=== PATIENT | male | born 1940 | race Caucasian/White ===

== ENCOUNTER → 2018-08-03 09:53 | Outpatient (CLI) | payer OTHER, SELFPAY ==
--- NOTE | 2018-08-13 10:16 | PM.PFT.1 ---
Pulmonary Function Test Referral & Results Date Patient Seen: 08/03/18 Requesting provider: Dillon Paul Results: The spirometry demonstrates an FVC of 3.79 L which is 92% of predicted. The FEV1 was measured at 3.10 L which is 106% of predicted. The FEV1/FVC ratio was 82 which is 113% of predicted. Following the administration of bronchodilator there was no appreciable change. Lung volumes show an SVC of 3.62 L which is 81% of predicted. The diffusing capacity was measured at 28.43 which is 87% of predicted. The maximum voluntary ventilation was normal Interpretation: This study demonstrates probably normal pulmonary function, there may be slight reduction in SVC suggesting some element of restrictive lung disease based on patient's other normal numbers I will call this a normal study
== END ==
PROVIDERS: PCP Student in an Organized Health Care Education/Training Program; Visit Provider Student in an Organized Health Care Education/Training Program
DX: R05 Cough (principal); R91.8 Other nonspecific abnormal finding of lung field
CPT/HCPCS: 94010; 94060; 94726; 94729

== ENCOUNTER 2023-10-16 08:28 | Inpatient (IN) | payer MEDICARE, SELFPAY ==
[2023-10-16] VITALS (18 sets, daily range): BP systolic 115–159; BP diastolic 66–82; PULSE 71–105; RESP 15–38; TEMP 36.5; O2SAT 95–98; BMI 21.7
--- NOTE | 2023-10-16 08:44 | ED_ITS ---
HPI - General Adult General Chief complaint: Altered Mental Status Stated complaint: thinks UTI and dehydrated/ lethargic Time Seen by Provider: 10/16/23 08:35 Source: family Mode of arrival: Wheelchair Limitations: other (Dementia) History of Present Illness HPI narrative: Patient is an 83-year-old male. Has a history of dementia. According to his who is at bedside at baseline he does not know what year it is or what month it is. He is normally able to walk on his own. He is able to talk. He is spent the past several months at a care home facility because of the dementia. Patient is unable to provide any HPI. The patient's states that she thinks that over the past several days/week he is declined. She states that now he is very unsteady on his feet. He is not been eating or drinking very much. She was concerned that maybe he has a urinary tract infection or maybe even dehydrated as he acted very similar approximately 1 year ago when he became dehydrated. He is unable to state whether or not he is having any pain. Related Data Home Medications Medication Instructions Recorded Confirmed finasteride 5 mg tablet 5 mg PO DAILY 10/16/23 10/16/23 nitrofurantoin 1 cap PO BID 10/16/23 10/16/23 monohydrate/macrocrystals 100 mg capsule pantoprazole 20 mg tablet,delayed 20 mg PO DAILY 10/16/23 10/16/23 release quetiapine 25 mg tablet 25 mg PO DAILY 10/16/23 10/16/23 Allergies Allergy/AdvReac Type Severity Reaction Status Date / Time [id number]-[id number] Reductase Allergy Verified 10/16/23 08:45 Inhibitor Review of Systems Review of Systems Narrative: Unable to obtain given patient's history of dementia Exam Initial Vital Signs Initial Vital Signs: Vital Signs Temperature 97.7 F 10/16/23 08:40 Pulse Rate 105 H 10/16/23 08:40 Respiratory Rate 20 10/16/23 08:40 Blood Pressure 157/82 H 10/16/23 08:40 Pulse Oximetry 97 10/16/23 08:40 Oxygen Delivery Method Room Air 10/16/23 08:40 HENMT Face and sinus: normal facial exam Mouth: No moist mucous membranes Resp Effort & Inspection: normal respiratory effort Auscultation: clear to auscultation bilaterally Cardio Rate: regular rate Rhythm: regular rhythm GI Inspection: normal to inspection and distended Palpation: firm and guarding Skin General: no rashes or lesions noted Neuro Other: Patient is able to follow commands. Was able to say ?those are cold? when the EKG leads were placed on him. Would not answer questions otherwise. Extrem General: capillary refill normal Scores GCS [place] coma scale eye opening: Spontaneous [place] coma scale verbal response: Confused [place] coma scale motor response: Obey commands [place] coma scale total score: 14 Course Orders Ordered: ED Orders 10/16/23 08:55 Complete Blood Count AUTO DIFF Stat Comprehensive Metabolic Panel Stat Creatine Kinase Stat Lactate (Lactic Acid) Stat Lipase Stat Procalcitonin Stat 10/16/23 09:20 Creatinine Urine Random Stat Sodium Urine Random Stat Urinalysis and Microscopic Stat Urine Culture Stat 10/16/23 09:21 Blood Culture Stat 10/16/23 09:43 US renal complete Stat 10/16/23 09:57 Type and Screen Stat Sodium Chloride (Normal Saline 0.9%) 1,000 mls @ 125 mls/hr IV CONT MITRA Last Admin: 10/16/23 10:31 Dose: 125 mls/hr Documented By: MALINDA Discontinued Medications Sodium Chloride (Normal Saline 0.9%) 1,000 mls @ 500 mls/hr IV BOLUS ONE Stop: 10/16/23 10:38 Last Infusion: 10/16/23 10:05 Dose: Infused Documented By: Admin: 10/16/23 08:58 Dose: 500 mls/hr Documented By: MALINDA Ceftriaxone Sodium 1,000 mg/ (Sodium Chloride) 100 mls @ 200 mls/hr IV NOW ONE Stop: 10/16/23 09:21 Last Infusion: 10/16/23 10:05 Dose: Infused Documented By: Admin: 10/16/23 09:34 Dose: 200 mls/hr Documented By: MALINDA Vital Signs Vital signs: Vital Signs - 8 hr 10/16/23 08:40 10/16/23 09:15 10/16/23 09:30 Temperature 97.7 F Pulse Rate 105 H 99 H 104 H Respiratory Rate 20 24 32 H Blood Pressure 157/82 H Pulse Oximetry 97 98 97 Oxygen Delivery Method Room Air 10/16/23 09:45 10/16/23 10:00 10/16/23 10:05 Temperature Pulse Rate 99 H 99 H 100 H Respiratory Rate 26 H 38 H 26 H Blood Pressure Pulse Oximetry 98 97 98 Oxygen Delivery Method 10/16/23 10:05 10/16/23 10:15 10/16/23 10:15 Temperature Pulse Rate 96 H Respiratory Rate 19 Blood Pressure 157/72 H 151/72 H Pulse Oximetry 98 Oxygen Delivery Method 10/16/23 10:30 10/16/23 10:30 Temperature Pulse Rate 98 H Respiratory Rate 24 Blood Pressure 159/76 H Pulse Oximetry 98 Oxygen Delivery Method Medical Decision Making Lab Data Lab results reviewed: Yes I reviewed the patient's lab results. 10/16/23 08:55 10/16/23 08:55 Labs: Lab Results 10/16/23 10/16/23 Range/Units 08:55 09:20 WBC 17.8 H (4.5-11.0) X10^3/uL RBC 4.67 (4.5-5.9) X10^6/uL Hgb 13.7 (13.5-17.5) g/dL Hct 40.8 L (41-53) % MCV 87.4 (80-100) fL MCH 29.3 (26-34) PG MCHC 33.5 (30-36) % RDW 15.4 H (11.6-14.8) % Plt Count 219 (150-400) X10^3/uL Neut % (Auto) 86.7 H (50-75) % Lymph % (Auto) 3.4 L (25-40) % [place] % (Auto) 9.7 (3-14) % Eos % (Auto) 0.1 L (2-4) % Baso % (Auto) 0.1 (0-2) % Neut # (Auto) 63667 H (3419-2436) /uL Lymph # (Auto) 600 L (7024-4607) /uL [place] # (Auto) 1700 H (0-900) /uL Eos # (Auto) 0 (0-450) /uL Baso # (Auto) 0 (0-100) /uL Sodium 147 H (137-145) mmol/L Potassium 4.0 (3.4-5.1) mmol/L Chloride 108 H (98-107) mmol/L Carbon Dioxide 27 (22-32) mmol/L BUN 131 H* (9-20) mg/dL Creatinine 3.77 H (0.66-1.25) mg/dL Estimated GFR 15 L (>60) mL/min BUN/Creatinine Ratio 34.7 H (6-22) Glucose 132 H (80-110) mg/dL Lactate 1.7 (0.7-2.1) mmol/L Calcium 10.5 H (8.4-10.2) mg/dL Total Bilirubin 1.0 (0.2-1.3) mg/dL AST 45 (17-59) IU/L ALT 40 (<50) IU/L Alkaline Phosphatase 81 (38-126) U/L Total Creatine Kinase 299 H (55-170) U/L Total Protein 7.8 (6.3-8.2) g/dL Albumin 4.1 (3.5-5.0) g/dL Globulin 3.7 (1.7-4.1) g/dL Albumin/Globulin Ratio 1.1 (1.0-2.8) Lipase 19 L (23-300) U/L Procalcitonin (<0.5) ng/mL Urine Color Brown Urine Appearance Turbid Urine pH 6.5 (4.5-8.0) Ur Specific [place] 1.025 (1.000-1.035) Urine Protein 3+ H (Negative) Urine Glucose (UA) Negative (Negative) g/dL Urine Ketones Trace H (NEGATIVE) Urine Occult Blood 3+ H (Negative) Urine Nitrate Positive H (Negative) Urine Bilirubin 1+ H (NEGATIVE) Ur Bilirubin Confirm Cancelled Urine Urobilinogen 1.0 (0.2) E.U./dL Ur Leukocyte Esterase Negative (NEGATIVE) Urine RBC >100/hpf H (0-5/HPF) Urine WBC 10-30/hpf H (0-5/HPF) Ur Squamous Epith Cells 1-5 /hpf (0-5/HPF) Urine Bacteria Moderate (10-30) H (None) Ur Culture Indicated? Specimen cultured Ur Random Sodium 37 (30-90) mmol/L Urine Creatinine 110.6 mg/dL Imaging Data US - abdomen: Radiologist's Impression: ROCEDURE: US RENAL COMPLETE INDICATIONS: SAI and urinary retention TECHNIQUE: Real-time scanning was performed of the kidneys and bladder, with image documentation. COMPARISON: None. FINDINGS: Kidneys: Kidneys are normal in size. Right kidney measures 10.4 cm long; left kidney measures 11.4 cm long. Right renal cortical thickness is 2.0 cm; left renal cortical thickness is 1.3 cm. Renal cortical echotexture is normal. There is prominence of right renal pelvis suggestive of mild hydronephrosis versus peripelvic cyst. No left- sided hydronephrosis. No suspicious solid mass lesions. Bladder: Crawford catheter is seen in a decompressed urinary bladder. No ureteral jets are seen. Miscellaneous: No free pelvic fluid. IMPRESSION: 1. Possible mild right-sided hydronephrosis versus peripelvic renal cyst. No renal stone is seen. No solid appearing renal lesion. No left-sided hydronephrosis. 2. Crawford catheter in a decompressed urinary bladder. MDM Narrative Medical decision making narrative: Patient is clinically dehydrated with dry mucous membranes and poor skin turgor. Was given fluids for this. He was found to be retaining urine. A Crawford catheter was placed. He is nitrite positive. Antibiotics administered. Renal ultrasound shows no significant hydro. FENa is 0.9 which points towards prerenal. According to the patient's was at bedside he does seem to be more fatigue more confused than what he is at baseline. He is normally able to ambulate but has not been able to do that. She is concerned that maybe he is not had much to eat or drink over the past couple days. Does not appear to be any discomfort with movement of his extremities. I did discuss the case with Dr. Lara hospitalist on-call who will admit for further evaluation and treatment. Discussed the need for admission with the patient's . She expressed understanding and agreement as well. Discharge Plan Departure Patient Disposition: Admitted As Inpatient Clinical Impression: Altered mental status, Acute on chronic urinary retention, Acute kidney injury, Urinary tract infection, Dehydration Admit Date/Time: 10/16/23 11:01 Admit Provider: Zaire Lara
[2023-10-16] MEDS: SODIUM CHLORIDE 0.9% 1,000 ML 500 ML IV (08:58)
[2023-10-16 09:13] LABS: Add Manual Diff / Slide Review NO; Basophils Absolute Auto 0 /uL (0-100); Basophils Percent Auto 0.1 % (0-2); Eosinophils Absolute Auto 0 /uL (0-450); Eosinophils Percent Auto 0.1 % (2-4); Hematocrit 40.8 % (41-53); Hemoglobin 13.7 g/dL (13.5-17.5); Lymphocytes Absolute Auto 600 /uL (1100-4500); Lymphocytes Percent Auto 3.4 % (25-40); Mean Corpuscular HGB Conc 33.5 % (30-36); Mean Corpuscular Hemoglobin 29.3 PG (26-34); Mean Corpuscular Volume 87.4 fL (80-100); Monocytes Absolute Auto 1700 /uL (0-900); Monocytes Percent Auto 9.7 % (3-14); Neutrophils Absolute Auto 15400 /uL (1500-7000); Neutrophils Percent Auto 86.7 % (50-75); Platelet Count 219 X10^3/uL (150-400); Red Blood Cell Count 4.67 X10^6/uL (4.5-5.9); Red Cell Distribution Width 15.4 % (11.6-14.8); White Blood Cell Count 17.8 X10^3/uL (4.5-11.0)
[2023-10-16 09:27] LABS: Alanine Aminotransferase 40 IU/L (<50); Albumin 4.1 g/dL (3.5-5.0); Albumin Globulin Ratio 1.1 (1.0-2.8); Alkaline Phosphatase 81 U/L (38-126); Aspartate Aminotransferase 45 IU/L (17-59); Calcium 10.5 mg/dL (8.4-10.2); Carbon Dioxide 27 mmol/L (22-32); Chloride 108 mmol/L (98-107); Estimated Glomerular Filt Rate 15 mL/min (>60); Globulin 3.7 g/dL (1.7-4.1); Glucose 132 mg/dL (80-110); HEMOLYSIS < 15 (0-50); Lipase 19 U/L (23-300); Sodium 147 mmol/L (137-145); Total Protein 7.8 g/dL (6.3-8.2)
[2023-10-16] MEDS: cefTRIAXone 1,000 MG in SODIUM CHLORIDE 0.9% 100 ML 200 MG IV (09:34)
[2023-10-16 09:39] LABS: BUN Creatinine Ratio 34.7 (6-22)
[2023-10-16 09:40] LABS: Blood Urea Nitrogen 131 mg/dL (9-20)
--- NOTE | 2023-10-16 09:43 | DI.US.S_ITS ---
PROCEDURE: US RENAL COMPLETE INDICATIONS: SAI and urinary retention TECHNIQUE: Real-time scanning was performed of the kidneys and bladder, with image documentation. COMPARISON: None. FINDINGS: Kidneys: Kidneys are normal in size. Right kidney measures 10.4 cm long; left kidney measures 11.4 cm long. Right renal cortical thickness is 2.0 cm; left renal cortical thickness is 1.3 cm. Renal cortical echotexture is normal. There is prominence of right renal pelvis suggestive of mild hydronephrosis versus peripelvic cyst. No left-sided hydronephrosis. No suspicious solid mass lesions. Bladder: Crawford catheter is seen in a decompressed urinary bladder. No ureteral jets are seen. Miscellaneous: No free pelvic fluid. IMPRESSION: 1. Possible mild right-sided hydronephrosis versus peripelvic renal cyst. No renal stone is seen. No solid appearing renal lesion. No left-sided hydronephrosis. 2. Crawford catheter in a decompressed urinary bladder. Dictated by: Nick Britt M.D. on 10/16/2023 at 10:39 Approved by: Nick Britt M.D. on 10/16/2023 at 10:40
--- NOTE | 2023-10-16 10:00 | PC.NURSE ---
Urine is dark red / purple w/o odor. Profound urinary retention noted. Dr. Momin aware.
--- NOTE | 2023-10-16 10:06 | PC.NURSE ---
Pt came to ED today because his had been noticing an ongoing change in his mental status. Pt's states that she noticed that he has been becoming more confused since thursday when she last saw him. Today he was confused, unable to answer questions appropriately and was acting funny. reports that pt's has dementia but able to answer questions at baseline. Pt expresses pain on palpation of lower abd and bladder scan revealed pt to be retaining >1000cc if urine. Received verbal order for indwelling coombs cath. Coombs patient and draining clear dark brown urine. 2700cc of urine out. Specimen sent to lab. at bedside.
[2023-10-16 10:08] LABS: Creatinine Urine Random 110.6 mg/dL; Sodium Urine Random 37 mmol/L (30-90)
[2023-10-16 10:12] LABS: Creatine Kinase 299 U/L (55-170)
[2023-10-16 10:14] LABS: Appearance Urine UA TURBID; Bilirubin Urine UA 1+ (NEGATIVE); Color Urine UA BROWN; Glucose Urine UA NEGATIVE (Negative); Ketones Urine UA TRACE (NEGATIVE); Leukocyte Esterase Urine UA NEGATIVE (NEGATIVE); Nitrite Urine UA POSITIVE (Negative); Occult Blood Urine UA 3+ (Negative); Protein Urine UA 3+ (Negative); Specific Gravity Urine UA 1.025 (1.000-1.035); pH Urine UA 6.5 (4.5-8.0)
[2023-10-16 10:21] LABS: Bacteria Urine Moderate (10-30); RBC Urine >100/HPF (0-5/HPF); WBC Urine 10-30/HPF (0-5/HPF)
[2023-10-16 10:22] LABS: Culture Indicated Urine Specimen Cultured; Squamous Epithelial Cell Urine 1-5 /HPF (0-5/HPF)
[2023-10-16] MEDS: SODIUM CHLORIDE 0.9% 1,000 ML 125 ML IV ×2 (10:31→13:33)
[2023-10-16 10:49] LABS: Lactate (Lactic Acid) 1.7 mmol/L (0.7-2.1)
--- NOTE | 2023-10-16 12:56 | PC.NURSE ---
Patient report received from Kristen in ED. He arrived to room 206 at 1245. He is transferred to bed via slide board. at bedside. Per he is VENETIE, and oriented x1, very confused and not able to answer direct questions. He is resistive to turning but able to turn to evaluate skin, and no bed sores observed. Coccyx is pinch and blanchable. His skin to his fore arms and extremities is thin, dry, peeling and covered with scattered bruises. Crawford in place draining dark red/brown. IVF NS running at 125ml/hr. Bed alarm on, q 2 turning, 1:1 feed/drinking. Continuous monitoring.
[2023-10-16 13:42] LABS: BUN Creatinine Ratio 44.2 (6-22); Calcium 9.5 mg/dL (8.4-10.2); Carbon Dioxide 27 mmol/L (22-32); Chloride 114 mmol/L (98-107); Estimated Glomerular Filt Rate 23 mL/min (>60); Glucose 116 mg/dL (80-110); HEMOLYSIS 27 (0-50); Potassium 3.8 mmol/L (3.4-5.1); Sodium 147 mmol/L (137-145)
[2023-10-16 13:47] LABS: Blood Urea Nitrogen 119 mg/dL (9-20)
[2023-10-16] MEDS: QUETIAPINE 25 MG TABLET 50 MG PO (14:37)
--- NOTE | 2023-10-16 17:24 | PM.HP.1 ---
History of Present Illness History of Present Illness Date Patient Seen: 10/16/23 Time Patient Seen: 08:00 Chief complaint: thinks UTI and dehydrated/ lethargic Narrative: Mr. Tafoya is an 83M with PMH dementia, BPH who presents to the hospital for confusion and decreased appetite. No history of obtained from the patient due to confusion. His notes he resides at a nursing facility. He is usually able to ambulate independently. More recently he has been unsteady with ambulation and not eating/drinking significantly. In the ED workup was done, vitals notable for afebrile, heart rate 100s, sats 97% room air. Labs reviewed and notable for WBC 17.8, hgb 13.7, ptls 219. Na 147, BUN 131, creatinine 3.77. UA noable for blood, WBCs, bacteria, nitrates. Coombs was placed and per ED physician drained quickly 3L urine. Kidney ultrasound showed possible mild right hydronphresosis and no stone noted. He was ordered for fluids and antibiotics and admitted for further treatment. [facility] Social History household members: none Smoking Status: Never smoker alcohol intake: former Meds Home Medications and Allergies Home Medications Medication Instructions Recorded Confirmed Type Glucosamine Chondroitin 1 tab PO DAILY 10/16/23 10/16/23 History Tylenol 1 tab PO Q4HR PRN Pain (Scale 10/16/23 10/16/23 History Score 1-3) cetirizine 10 mg tablet 10 mg PO DAILY 10/16/23 10/16/23 History cholecalciferol (vitamin D3) 50 2,000 unit PO DAILY 10/16/23 10/16/23 History mcg (2,000 unit) tablet (Vitamin D3) clotrimazole 1 % topical cream 1 applic topical WEEKLY 10/16/23 10/16/23 History (Lotrimin AF (clotrimazole)) coenzyme Q10 100 mg capsule (Co 100 mg PO DAILY 10/16/23 10/16/23 History Q-10) finasteride 5 mg tablet 5 mg PO BEDTIME 10/16/23 10/16/23 History melatonin 5 mg tablet 5 mg PO BEDTIME PRN Sleep 10/16/23 10/16/23 History multivitamin 1 tab PO Q OTHER DAY 10/16/23 10/16/23 History nitrofurantoin 1 cap PO BID 10/16/23 10/16/23 History monohydrate/macrocrystals 100 mg capsule pantoprazole 20 mg tablet,delayed 20 mg PO DAILY 10/16/23 10/16/23 History release quetiapine 25 mg tablet 50 mg PO DAILY 10/16/23 10/16/23 History Allergies Allergy/AdvReac Type Severity Reaction Status Date / Time [id number] Reductase Allergy Verified 10/16/23 08:45 Inhibitor Review of Systems Review of Systems Narrative: Unable to review with patient Exam Vital Signs (past 8 hours): - 10/16/23 09:30 10/16/23 09:45 10/16/23 10:00 Pulse Rate 104 H 99 H 99 H Respiratory Rate 32 H 26 H 38 H Blood Pressure Pulse Oximetry 97 98 97 10/16/23 10:05 10/16/23 10:05 10/16/23 10:15 Pulse Rate 100 H 96 H Respiratory Rate 26 H 19 Blood Pressure 157/72 H Pulse Oximetry 98 98 10/16/23 10:15 10/16/23 10:30 10/16/23 10:30 Pulse Rate 98 H Respiratory Rate 24 Blood Pressure 151/72 H 159/76 H Pulse Oximetry 98 10/16/23 10:45 10/16/23 10:45 10/16/23 11:00 Pulse Rate 100 H 94 H Respiratory Rate 25 H 23 Blood Pressure 155/72 H Pulse Oximetry 98 97 10/16/23 11:00 10/16/23 11:15 10/16/23 11:15 Pulse Rate 94 H Respiratory Rate 24 Blood Pressure 144/66 H 154/71 H Pulse Oximetry 98 10/16/23 11:30 10/16/23 11:45 10/16/23 12:00 Pulse Rate 93 H 94 H 90 Respiratory Rate 17 15 21 Blood Pressure Pulse Oximetry 97 97 10/16/23 12:15 10/16/23 12:30 Pulse Rate 91 H 87 Respiratory Rate 17 18 Blood Pressure 154/71 H Pulse Oximetry 95 97 Oxygen Delivery Method Room Air Narrative Exam Narrative: GEN: lethargic, sleeping CV: regular rate and rhythm, no murmurs PULM: clear bilaterally ABD: soft, nontender, nondistended EXT: warm and well perfused with no edema NEURO: confused Objective Labs 10/16/23 08:55 10/16/23 13:05 Labs: Laboratory Results - last 24 hr 10/16/23 10/16/23 10/16/23 08:55 09:20 11:30 WBC 17.8 H RBC 4.67 Hgb 13.7 Hct 40.8 L MCV 87.4 MCH 29.3 MCHC 33.5 RDW 15.4 H Plt Count 219 Neut % (Auto) 86.7 H Lymph % (Auto) 3.4 L [place] % (Auto) 9.7 Eos % (Auto) 0.1 L Baso % (Auto) 0.1 Neut # (Auto) 44731 H Lymph # (Auto) 600 L [place] # (Auto) 1700 H Eos # (Auto) 0 Baso # (Auto) 0 Sodium 147 H Potassium 4.0 Chloride 108 H Carbon Dioxide 27 BUN 131 H* Creatinine 3.77 H Estimated GFR 15 L BUN/Creatinine Ratio 34.7 H Glucose 132 H Lactate 1.7 Calcium 10.5 H Total Bilirubin 1.0 AST 45 ALT 40 Alkaline Phosphatase 81 Total Creatine Kinase 299 H Total Protein 7.8 Albumin 4.1 Globulin 3.7 Albumin/Globulin Ratio 1.1 Lipase 19 L Procalcitonin Urine Color Brown Urine Appearance Turbid Urine pH 6.5 Ur Specific [place] 1.025 Urine Protein 3+ H Urine Glucose (UA) Negative Urine Ketones Trace H Urine Occult Blood 3+ H Urine Nitrate Positive H Urine Bilirubin 1+ H Ur Bilirubin Confirm Cancelled Urine Urobilinogen 1.0 Ur Leukocyte Esterase Negative Urine RBC >100/hpf H Urine WBC 10-30/hpf H Ur Squamous Epith Cells 1-5 /hpf Urine Bacteria Moderate (10-30) H Ur Culture Indicated? Specimen cultured Ur Random Sodium 37 Urine Creatinine 110.6 Blood Type A Positive Antibody Screen Negative 10/16/23 13:05 WBC RBC Hgb Hct MCV MCH MCHC RDW Plt Count Neut % (Auto) Lymph % (Auto) [place] % (Auto) Eos % (Auto) Baso % (Auto) Neut # (Auto) Lymph # (Auto) [place] # (Auto) Eos # (Auto) Baso # (Auto) Sodium 147 H Potassium 3.8 Chloride 114 H Carbon Dioxide 27 BUN 119 H* Creatinine 2.69 H Estimated GFR 23 L BUN/Creatinine Ratio 44.2 H Glucose 116 H Lactate Calcium 9.5 Total Bilirubin AST ALT Alkaline Phosphatase Total Creatine Kinase Total Protein Albumin Globulin Albumin/Globulin Ratio Lipase Procalcitonin Urine Color Urine Appearance Urine pH Ur Specific [place] Urine Protein Urine Glucose (UA) Urine Ketones Urine Occult Blood Urine Nitrate Urine Bilirubin Ur Bilirubin Confirm Urine Urobilinogen Ur Leukocyte Esterase Urine RBC Urine WBC Ur Squamous Epith Cells Urine Bacteria Ur Culture Indicated? Ur Random Sodium Urine Creatinine Blood Type Antibody Screen Assessment & Plan Assessment & Plan narrative: 1. Acute UTI secondary to acute urinary retention -had >3L urine out when coombs place -UA consistent with UTI -follow up urine and blood cultures -continue IV antibiotics for now 2. Acute encephalopathy -secondary to above and possibly secondary to renal failure as well -treatment as above 3. SAI -secondary to obstruction and possible prerenal -creatinine improving after coombs placed -trend closely 3. Dementia with behavioral disturbances -continue seroquel CODE: DNR/DNI Proxy: Maggie Tafoya, I have discussed plan and obtained history from family report. I have discussed plan of care with ED physician and bedside nurse. I have reviewed labs, imaging. Quality VTE Deep Vein Thrombosis/Pulmonary Embolism Present on Admission: No MIPS - Meds 'Current medications' to include all prescriptions, [id number] products, herbals, cannabis/cannabidiol products, and vitamin/mineral/dietary (nutritional) supplements. I have utilized all available resources to obtain, update, or review the patient?s current medications. [If Yes, STOP here]: Yes
[2023-10-16] MEDS: HEPARIN 5,000 UNIT/ML VIAL 5000 UNIT SUBCUT (20:24)
[2023-10-16] MEDS: ACETAMINOPHEN 325 MG TABLET 650 MG PO (20:27)
[2023-10-17] MEDS: QUETIAPINE 25 MG TABLET 50 MG PO ×2 (00:22→07:59)
[2023-10-17] MEDS: LORazepam 1 MG TABLET PO (04:52)
[2023-10-17 06:00] VITALS: RESP 20
[2023-10-17 06:17] LABS: Add Manual Diff / Slide Review NO; Basophils Absolute Auto 0 /uL (0-100); Basophils Percent Auto 0.3 % (0-2); Eosinophils Absolute Auto 200 /uL (0-450); Eosinophils Percent Auto 1.8 % (2-4); Hematocrit 35.1 % (41-53); Hemoglobin 11.8 g/dL (13.5-17.5); Lymphocytes Absolute Auto 1300 /uL (1100-4500); Lymphocytes Percent Auto 13.8 % (25-40); Mean Corpuscular HGB Conc 33.7 % (30-36); Mean Corpuscular Hemoglobin 29.6 PG (26-34); Monocytes Absolute Auto 1100 /uL (0-900); Monocytes Percent Auto 11.4 % (3-14); Neutrophils Absolute Auto 7100 /uL (1500-7000); Neutrophils Percent Auto 72.7 % (50-75); Platelet Count 190 X10^3/uL (150-400); Red Blood Cell Count 3.99 X10^6/uL (4.5-5.9); Red Cell Distribution Width 15.3 % (11.6-14.8); White Blood Cell Count 9.7 X10^3/uL (4.5-11.0)
[2023-10-17] MEDS: SODIUM CHLORIDE 0.9% 1,000 ML 125 ML IV (06:18)
[2023-10-17 06:35] LABS: BUN Creatinine Ratio 71.7 (6-22); Blood Urea Nitrogen 91 mg/dL (9-20); Calcium 9.7 mg/dL (8.4-10.2); Carbon Dioxide 34 mmol/L (22-32); Chloride 118 mmol/L (98-107); Estimated Glomerular Filt Rate 56 mL/min (>60); Glucose 106 mg/dL (80-110); HEMOLYSIS < 15 (0-50); Potassium 3.9 mmol/L (3.4-5.1); Sodium 154 mmol/L (137-145)
--- NOTE | 2023-10-17 08:11 | PC.NURSE ---
Pt very agitated, swinging and pulling coombs out Placed in soft wrist restraints. Dr Rodney aware. 0900 sereoquil given Pr resting at this time .
[2023-10-17] MEDS: DEXTROSE 5% WATER 1,000 ML 100 ML IV ×2 (08:22→20:10)
[2023-10-17] MEDS: cefTRIAXone 2,000 MG in SODIUM CHLORIDE 0.9% 100 ML 200 MG IV (09:47)
[2023-10-17 11:30] VITALS: BP 119/78; PULSE 88; RESP 19; TEMP 36.4; O2SAT 94
--- NOTE | 2023-10-17 12:26 | CM.DANOTE ---
Reviewed EMR for pt's medical status and initial identified d/c needs. present at bedside. [employer] met w/, introduced self and role. resides in Thursday, pt resides at [facility] since June 2022 due to progressive dementia. [facility] PCP: Sydney MarcelleLiChantel Pt is a 83 yeear-old M with a hx of dementia. At baseline, he has been able to walk independently, could answer questions congruently at times. and could speak. He is reported by to not be agitated at baseline, and is usually very cooperative with care and [facility] staff. Per , pt has been declining more rapidly over the last several weeks, and she noticed a profound difference in his overall presentation within the last week. She noted that pt was now unsteady on his feet, more confused, head drooping, has been significantly lethargic, and quit eating and drinking. ED evaluation was significant for urinary retention, UTI, and clinical dehydration. Pt also presents as agitated, was swinging, spitting at times, and was trying to pull out his catheter. He was then placed in soft restraints, given Seroquel for agitation. Cultures remain pending at this time. Plan: intends for pt to return to [facility] once medically stable. She shares that pt had a UTI about a year ago and demonstrated the same kind of agitation, had urinary retention, and had similar overall functional decline. DCP will continue to follow and assist with this evolving care plan/needs. Discharge Planning/Care Management CM Discharge Assessment Start: 10/17/23 12:17 Freq: Status: Active Protocol: Document 10/17/23 12:22 DPL (Rec: 10/17/23 12:26 DPL [id number]) Discharge Planning Assessment Assigned Marketing And Outreach Coordinator BEHZAD [place] Advance Directives? Yes Advance Directives on File No History Provided By Family Member,Medical Record Has Patient been admitted in last 30 No days? Prior Living Arrangements Assisted Living Comment [facility] Household Members none Type of transporation used prior to Relies on Others admit Facility Name Admitted From: [facility] Willing to Return to Facility? Yes Independent with ADL's No Is patient alert and oriented? No Needs Assistance With Bathing,Grooming,Meal Prep, Toileting,Managing Medications ,Home Chores / Shopping Caregiver for Another No Comment No identified discharge needs at this time. Barriers to Discharge Yes Comment Pending pt's improvement, may need assisted. Cont. to monitor for recommendations. Discharge Plan Assisted Living Facility Additional Comment Evolving. Whiteboard Updated in Patient Room with Yes name and ext. # of Marketing And Outreach Coordinator Review Status In Process Please Provide Date Initial DC 10/17/23 Assessment Was Performed
[2023-10-17] MEDS: TAMSULOSIN 0.4 MG CAPSULE PO (13:00)
[2023-10-17] MEDS: LORazepam 2 MG/ML INJ 0.5 MG IV ×2 (13:56→20:05)
--- NOTE | 2023-10-17 15:21 | PC.NURSE ---
Addendum entered by Jennifer Davey R.N. 10/17/23 17:42: Continues to sleep soundly. Updated MD order for restraints recieved. Original Note: Pt continues w/soft wrist restraints. Med w/ativan as per orders for extreme agitation. Q 15 min checks all neg. Sleeping soundly past 1.5hrs Taking fluid when offered. Condition remains essentially unchanged Call light w/in [facility], bed alarm on for pt safety, 'Continue w/plan of care.
--- NOTE | 2023-10-17 18:13 | P.PN_ITS ---
Subjective Subjective Date Patient Seen: 10/17/23 Time Patient Seen: 08:00 Interval history: He has remained agitated. He pulled out a coombs. He has been pulling at IVs. His says that even at baseline she doubted he would tolerate a coombs well. Exam Vital Signs (past 8 hours): - 10/17/23 11:30 Temperature 97.5 F L Pulse Rate 88 Respiratory Rate 19 Blood Pressure 119/78 Pulse Oximetry 94 Oxygen Delivery Method Room Air Narrative Exam Narrative: GEN: no acute distress CV: regular rate and rhythm, no murmurs PULM: clear bilaterally ABD: soft, nontender, nondistended EXT: warm and well perfused with no edema NEURO: confused Objective Labs 10/17/23 06:09 10/17/23 06:09 Labs: Laboratory Results - last 24 hr 10/17/23 06:09 WBC 9.7 RBC 3.99 L Hgb 11.8 L Hct 35.1 L MCV 88.0 MCH 29.6 MCHC 33.7 RDW 15.3 H Plt Count 190 Neut % (Auto) 72.7 Lymph % (Auto) 13.8 L Richardson % (Auto) 11.4 Eos % (Auto) 1.8 L Baso % (Auto) 0.3 Neut # (Auto) 7100 H Lymph # (Auto) 1300 Richardson # (Auto) 1100 H Eos # (Auto) 200 Baso # (Auto) 0 Sodium 154 H Potassium 3.9 Chloride 118 H Carbon Dioxide 34 H BUN 91 H Creatinine 1.27 H Estimated GFR 56 L BUN/Creatinine Ratio 71.7 H Glucose 106 Calcium 9.7 PFSH Social History household members: none Smoking Status: Never smoker alcohol intake: former Assessment & Plan Assessment & Plan narrative: 1. Acute UTI secondary to acute urinary retention suspected secondary to BPH -had >3L urine out when coombs place -UA consistent with UTI -follow up urine and blood cultures -continue IV antibiotics for now -ordered for finasteride and tamsulosin 2. Acute encephalopathy, metabolic -secondary to above and possibly secondary to renal failure as well -treatment as above 3. SAI, improving -secondary to obstruction and possible prerenal -creatinine improving after coombs placed -trend closely 3. Dementia with behavioral disturbances -continue seroquel CODE: DNR/DNI Proxy: Maggie Tafoya, I have discussed plan and obtained history from family report. I have discussed plan of care with ED physician and bedside nurse. I have reviewed labs, imaging. Quality VTE Deep Vein Thrombosis/Pulmonary Embolism Present on Admission: No
[2023-10-17] MEDS: FINASTERIDE 5 MG TABLET PO (20:03)
[2023-10-17] MEDS: HEPARIN 5,000 UNIT/ML VIAL 5000 UNIT SUBCUT (20:03)
[2023-10-18] VITALS: BP 158/82; PULSE 72; RESP 16; TEMP 36.1; O2SAT 98
[2023-10-18] MEDS: DEXTROSE 5% WATER 1,000 ML 100 ML IV ×2 (06:08→20:41)
[2023-10-18 06:31] VITALS: RESP 16
[2023-10-18 06:33] LABS: Hematocrit 38.2 % (41-53); Hemoglobin 12.9 g/dL (13.5-17.5); Mean Corpuscular HGB Conc 33.9 % (30-36); Mean Corpuscular Hemoglobin 29.7 PG (26-34); Mean Corpuscular Volume 87.7 fL (80-100); Platelet Count 217 X10^3/uL (150-400); Red Blood Cell Count 4.36 X10^6/uL (4.5-5.9); Red Cell Distribution Width 15.2 % (11.6-14.8); White Blood Cell Count 8.7 X10^3/uL (4.5-11.0)
[2023-10-18 06:44] LABS: BUN Creatinine Ratio 71.8 (6-22); Blood Urea Nitrogen 56 mg/dL (9-20); Calcium 9.6 mg/dL (8.4-10.2); Carbon Dioxide 33 mmol/L (22-32); Chloride 115 mmol/L (98-107); Estimated Glomerular Filt Rate > 60 mL/min (>60); Glucose 112 mg/dL (80-110); HEMOLYSIS < 15 (0-50); Potassium 3.5 mmol/L (3.4-5.1); Sodium 151 mmol/L (137-145)
[2023-10-18] MEDS: LORazepam 2 MG/ML INJ 0.5 MG IV (08:30)
--- NOTE | 2023-10-18 09:03 | PC.NURSE ---
Assess- Patient is awake with soft limb restraints on each wrist. Patient given 0.5mg of iv ativan as he was figity, kicking, and trying to spit earlier. He is calm now, ivf infusing and patient is tolerating this well. He took drinks of his ensure around 75% of the bottle. Will try to give patient his oral medication when is more calm.
[2023-10-18] MEDS: TAMSULOSIN 0.4 MG CAPSULE PO (10:25)
[2023-10-18] MEDS: HEPARIN 5,000 UNIT/ML VIAL 5000 UNIT SUBCUT ×2 (10:25→20:45)
[2023-10-18] MEDS: QUETIAPINE 25 MG TABLET 50 MG PO (10:25)
[2023-10-18] MEDS: POTASSIUM CHLORIDE 20 MEQ TAB 40 MEQ PO (11:08)
--- NOTE | 2023-10-18 11:14 | CM.DPC ---
DCP Cont: Per MD and RN, pt continues with soft wrist restraints and some sedation due to agitation and confusion and reduce risk of harm to self and staff and plan is potential d/c of coombs cath tomorrow Mon to see if pt can void independently. If pt does not improve with medications for UTI/urinary retention and continues to be agitated then possible need for Goals of Care discussion with spouse bedside to determine possible Comfort Measures. SW to call [facility] tomorrow to discuss pt's progress and needs to determine safe discharge back to their facility if pt improves or with Hospice services for additional support. Pt likely not a good candidate for SNF rehab. Plan: SW to follow closely for pt progress overnight and attempts at discontinuing coombs cath and wrist restraints otherwise likely need of Goals of Care discussion with spouse. BEHZAD Chi
[2023-10-18 13:00] VITALS: BP 118/53; PULSE 61; RESP 16; TEMP 36.1; O2SAT 97
[2023-10-18] MEDS: cefTRIAXone 2,000 MG in SODIUM CHLORIDE 0.9% 100 ML 200 MG IV (14:11)
--- NOTE | 2023-10-18 14:35 | PM.PN.1 ---
Subjective Subjective Date Patient Seen: 10/18/23 Time Patient Seen: 08:00 Interval history: He is confused. He has been spitting at staff. He has been needed to be in restrtaints, physical and chemical, due to risk of injuring self by removing IV, coombs. Exam Vital Signs (past 8 hours): - 10/18/23 13:00 Temperature 97.0 F L Pulse Rate 61 Respiratory Rate 16 Blood Pressure 118/53 L Pulse Oximetry 97 Oxygen Flow Rate 0 Oxygen Delivery Method Room Air Oxygen Flow Rate 0 Narrative Exam Narrative: GEN: no acute distress CV: regular rate and rhythm, no murmurs PULM: clear bilaterally ABD: soft, nontender, nondistended EXT: warm and well perfused with no edema NEURO: confused Objective Labs 10/18/23 06:21 10/18/23 06:21 Labs: Laboratory Results - last 24 hr 10/18/23 06:21 WBC 8.7 RBC 4.36 L Hgb 12.9 L Hct 38.2 L MCV 87.7 MCH 29.7 MCHC 33.9 RDW 15.2 H Plt Count 217 Sodium 151 H Potassium 3.5 Chloride 115 H Carbon Dioxide 33 H BUN 56 H Creatinine 0.78 Estimated GFR > 60 BUN/Creatinine Ratio 71.8 H Glucose 112 H Calcium 9.6 PFSH Social History household members: none Smoking Status: Never smoker alcohol intake: former Assessment & Plan Assessment & Plan narrative: 1. Acute UTI secondary to acute urinary retention suspected secondary to BPH -had >3L urine out when coombs place -UA consistent with UTI -follow up urine and blood cultures -continue IV antibiotics for now -ordered for finasteride and tamsulosin -hopefully with a few days of treatment for infection, bph, we can then remove coombs prior to discharge because I do not think he will be a safe discharge with coombs in place due to high risk of pulling it out 2. Acute encephalopathy, metabolic -likely multifactorial secondary to dementia, infection, renal failure, and electrolyte abnormalities -treatment as above 3. SAI, improving -secondary to obstruction and possible prerenal -creatinine improving after coombs placed -trend closely 4. Hypernatremia -continue IV d5w until sodium normal 5. Dementia with behavioral disturbances -continue seroquel -prn ativan and haldol -restrtaints as needed CODE: DNR/DNI Proxy: Maggie Tafoya, Quality VTE Deep Vein Thrombosis/Pulmonary Embolism Present on Admission: No
[2023-10-18] MEDS: FINASTERIDE 5 MG TABLET PO (20:45)
[2023-10-19] VITALS: BP 112/83; PULSE 76; RESP 16; TEMP 35.9; O2SAT 97
--- NOTE | 2023-10-19 03:51 | PC.NURSE ---
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 Patient becomes agitated when staff provides assistance, frequently spits & attempts to pull out coombs while awake. Remains on soft-wrist restraints, skin integrity is intact. Q2 turning. Midline in LUE infusing D5W @ 100 ml/hr. VSS, 97% on RA. Coombs draining dark orange urine. Frequent oral care attempted although patient often refuses. Bed alarm is on.
[2023-10-19] MEDS: LORazepam 2 MG/ML INJ 0.5 MG IV ×3 (05:50→18:03)
[2023-10-19 06:27] LABS: Hematocrit 37.8 % (41-53); Hemoglobin 12.6 g/dL (13.5-17.5); Mean Corpuscular HGB Conc 33.3 % (30-36); Mean Corpuscular Hemoglobin 29.1 PG (26-34); Mean Corpuscular Volume 87.2 fL (80-100); Platelet Count 236 X10^3/uL (150-400); Red Blood Cell Count 4.34 X10^6/uL (4.5-5.9); Red Cell Distribution Width 15.1 % (11.6-14.8); White Blood Cell Count 17.4 X10^3/uL (4.5-11.0)
[2023-10-19 06:58] LABS: BUN Creatinine Ratio 40.3 (6-22); Blood Urea Nitrogen 31 mg/dL (9-20); Calcium 8.9 mg/dL (8.4-10.2); Carbon Dioxide 34 mmol/L (22-32); Chloride 108 mmol/L (98-107); Estimated Glomerular Filt Rate > 60 mL/min (>60); Glucose 112 mg/dL (80-110); HEMOLYSIS < 15 (0-50); Potassium 3.4 mmol/L (3.4-5.1); Sodium 144 mmol/L (137-145)
[2023-10-19] MEDS: DEXTROSE 5% WATER 1,000 ML 100 ML IV ×2 (07:26→18:04)
[2023-10-19] MEDS: TAMSULOSIN 0.4 MG CAPSULE PO (08:41)
[2023-10-19] MEDS: QUETIAPINE 25 MG TABLET 50 MG PO (08:41)
[2023-10-19] MEDS: HEPARIN 5,000 UNIT/ML VIAL 5000 UNIT SUBCUT ×2 (09:00→22:46)
--- NOTE | 2023-10-19 10:18 | PC.NURSE ---
Addendum entered by Krystal Merrill R.N. 10/19/23 19:14: Patient given ativan around 1800, he was figity and pulling at his coombs. Repositioned and resting comfortably. Addendum entered by Krystal Merrill R.N. 10/19/23 10:50: Patient has some po potassium to be given, he is asleep now. Will try to give to patient when he is more awake around lunch time. He is moving his legs around but is calm. Coombs is in place and he is putting out straw colored urine. Original Note: Patient seems to be less agitated today, he is pulling at his blankets and attempts to pull at his iv from time to time. Soft wrist restraints are being tolerated well and he is being repositioned and changed every couple of hours as he leaks stool. Given po medications crushed in vanilla pudding and tolerated well. Patient also drank an ensure and ate some breakfast this morning. He is resting comfortably.
[2023-10-19 12:00] VITALS: BP 129/80; PULSE 92; RESP 16; TEMP 36.6; O2SAT 98
[2023-10-19] MEDS: cefTRIAXone 2,000 MG in SODIUM CHLORIDE 0.9% 100 ML 200 MG IV (15:04)
--- NOTE | 2023-10-19 15:25 | CM.DPC ---
DCP Cont: Per MD, pt continues with need for a little Ativan and soft wrist restraints due to pt's confusion and pulling at his coombs and midline but making some improvements today as not agitated with staff and able to follow commands better. Spouse has been bedside at times throughout the day. MD still waiting to see if pt makes improvements with mentation/behaviors with the restarted Flowmax so that if pt not having urinary retention than may improve to baseline. If no improvements, MD still plans to have Goals of Care with spouse towards possible Hospice discussion. LJ called [facility] and spoke to the [employer] and left msg and he stated HARJINDER Clay would call SW back to discuss pt situation. No call back from [facility]. LJ called Priscila, formerly [facility], and left detailed msg on pt status and request for [facility] staff to call SW in the AM 10/20 to discuss further regarding what is needed for pt to discharge back to their facility. LJ faxed clinicals to [facility] to review as well. Plan: LJ to follow closely in the AM on pt progress to determine improvements and return to [facility] at d/c vs Goals of Care and possible Hospice at [facility]. SW to coordinate with [place] and spouse. Dhara Patel, LOOM WINDER TENDER
--- NOTE | 2023-10-19 15:40 | PM.PN.1 ---
Subjective Subjective Date Patient Seen: 10/18/23 Time Patient Seen: 08:00 Interval history: He is confused. He has been needed to be in restrtaints, physical and chemical, due to risk of injuring self by removing IV, coombs. Exam Vital Signs (past 8 hours): - 10/19/23 12:00 Temperature 97.8 F Pulse Rate 92 H Respiratory Rate 16 Blood Pressure 129/80 Pulse Oximetry 98 Oxygen Flow Rate 0 Oxygen Delivery Method Room Air Oxygen Flow Rate 0 Narrative Exam Narrative: GEN: no acute distress CV: regular rate and rhythm, no murmurs PULM: clear bilaterally ABD: soft, nontender, nondistended EXT: warm and well perfused with no edema NEURO: confused Objective Labs 10/19/23 06:10 10/19/23 06:10 Labs: Laboratory Results - last 24 hr 10/19/23 06:10 WBC 17.4 H D RBC 4.34 L Hgb 12.6 L Hct 37.8 L MCV 87.2 MCH 29.1 MCHC 33.3 RDW 15.1 H Plt Count 236 Sodium 144 Potassium 3.4 Chloride 108 H Carbon Dioxide 34 H BUN 31 H Creatinine 0.77 Estimated GFR > 60 BUN/Creatinine Ratio 40.3 H Glucose 112 H Calcium 8.9 PFSH Social History household members: none Smoking Status: Never smoker alcohol intake: former Assessment & Plan Assessment & Plan narrative: 1. Acute UTI secondary to acute urinary retention suspected secondary to BPH -had >3L urine out when coombs place -UA consistent with UTI -follow up urine and blood cultures, all without growth currently. -continue IV antibiotics for now with ceftriaxone -ordered for finasteride and tamsulosin -hopefully with a few days of treatment for infection, bph, we can then remove coombs prior to discharge because I do not think he will be a safe discharge with coombs in place due to high risk of pulling it out. Will attempt removal either tomorrow or the day after, urine is clearing today but remains a bit cloudy and pink. 2. Acute encephalopathy, metabolic -likely multifactorial secondary to dementia, infection, renal failure, and electrolyte abnormalities -treatment as above 3. SAI, improving -secondary to obstruction and possible prerenal -creatinine improving after coombs placed -trend closely 4. Hypernatremia -continue IV d5w until sodium normal 5. Dementia with behavioral disturbances -continue seroquel -prn ativan and haldol -restrtaints as needed CODE: DNR/DNI Proxy: Maggie Tafoya, Dispo: ideally will return to assisted living without coombs catheter as discussed above. Possible discharge on hospice. Discussed with case management, nursing to obtain additional history and formulate the above assessment and plan . Quality VTE Deep Vein Thrombosis/Pulmonary Embolism Present on Admission: No
[2023-10-19 18:00] VITALS: RESP 18
[2023-10-19 20:15] VITALS: BP 118/68; PULSE 80; RESP 16; TEMP 36.5; O2SAT 96
[2023-10-19] MEDS: FINASTERIDE 5 MG TABLET PO (22:46)
[2023-10-20] MEDS: LORazepam 2 MG/ML INJ 0.5 MG IV (02:11)
[2023-10-20] MEDS: DEXTROSE 5% WATER 1,000 ML 100 ML IV (03:46)
--- NOTE | 2023-10-20 04:24 | PC.NURSE ---
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 Frequently attempts to pull at coombs & IV lines while awake, appears restless at times, becomes agitated when staff provides assistance with repositioning & hygiene. Soft-wrist restraints remains in place, skin integrity is intact. IV Ativan given as ordered. Medications given w/ pudding, tolerated well. Coombs in place draining orange/brown urine. Q2 turning, brief changes & barrier cream applied to ras-area. Will continue to monitor.
[2023-10-20 04:27] LABS: Add Manual Diff / Slide Review NO; Basophils Absolute Auto 0 /uL (0-100); Basophils Percent Auto 0.2 % (0-2); Eosinophils Absolute Auto 500 /uL (0-450); Eosinophils Percent Auto 5.6 % (2-4); Hematocrit 35.8 % (41-53); Hemoglobin 12.1 g/dL (13.5-17.5); Lymphocytes Absolute Auto 1700 /uL (1100-4500); Lymphocytes Percent Auto 17.6 % (25-40); Mean Corpuscular HGB Conc 33.9 % (30-36); Mean Corpuscular Volume 85.6 fL (80-100); Monocytes Absolute Auto 900 /uL (0-900); Monocytes Percent Auto 9.2 % (3-14); Neutrophils Absolute Auto 6700 /uL (1500-7000); Neutrophils Percent Auto 67.4 % (50-75); Platelet Count 224 X10^3/uL (150-400); Red Blood Cell Count 4.18 X10^6/uL (4.5-5.9); Red Cell Distribution Width 14.6 % (11.6-14.8); White Blood Cell Count 9.9 X10^3/uL (4.5-11.0)
[2023-10-20 04:35] LABS: BUN Creatinine Ratio 32.8 (6-22); Blood Urea Nitrogen 22 mg/dL (9-20); Calcium 8.6 mg/dL (8.4-10.2); Carbon Dioxide 32 mmol/L (22-32); Chloride 103 mmol/L (98-107); Estimated Glomerular Filt Rate > 60 mL/min (>60); Glucose 113 mg/dL (80-110); HEMOLYSIS < 15 (0-50); Potassium 3.3 mmol/L (3.4-5.1); Sodium 138 mmol/L (137-145)
[2023-10-20 04:52] VITALS: BP 120/72; PULSE 76; RESP 16; TEMP 36.6; O2SAT 96
[2023-10-20 08:00] VITALS: BP 115/86; PULSE 76; RESP 16; TEMP 36.2; O2SAT 96
[2023-10-20] MEDS: QUETIAPINE 25 MG TABLET 50 MG PO (09:40)
[2023-10-20] MEDS: LORATADINE 10 MG TABLET PO (09:41)
[2023-10-20] MEDS: HEPARIN 5,000 UNIT/ML VIAL 5000 UNIT SUBCUT ×2 (09:41→20:47)
[2023-10-20] MEDS: TAMSULOSIN 0.4 MG CAPSULE PO (09:41)
[2023-10-20] MEDS: POTASSIUM CHLORIDE 20 MEQ TAB 40 MEQ PO (13:03)
--- NOTE | 2023-10-20 13:08 | P.PN_ITS ---
Subjective Subjective Date Patient Seen: 10/18/23 Time Patient Seen: 08:00 Interval history: He is confused. He has been needed to be in restrtaints, physical and chemical, due to risk of injuring self by removing IV, coombs. Attempting to trial hand mitts today. Ideally he may be able to return to [facility] on hospice with mitts and his coombs catheter. If he pulls his catheter while here, would be also able to monitor for obstruction as he has been getting his medications the last few days for BPH. Exam Vital Signs (past 8 hours): - 10/20/23 08:00 Temperature 97.1 F L Pulse Rate 76 Respiratory Rate 16 Blood Pressure 115/86 Pulse Oximetry 96 Oxygen Flow Rate 0 Oxygen Delivery Method Room Air Oxygen Flow Rate 0 Narrative Exam Narrative: GEN: no acute distress CV: regular rate and rhythm, no murmurs PULM: clear bilaterally ABD: soft, nontender, nondistended EXT: warm and well perfused with no edema NEURO: confused Objective Labs 10/20/23 04:00 10/20/23 04:00 Labs: Laboratory Results - last 24 hr 10/20/23 04:00 WBC 9.9 RBC 4.18 L Hgb 12.1 L Hct 35.8 L MCV 85.6 MCH 29.0 MCHC 33.9 RDW 14.6 Plt Count 224 Neut % (Auto) 67.4 Lymph % (Auto) 17.6 L Letcher % (Auto) 9.2 Eos % (Auto) 5.6 H Baso % (Auto) 0.2 Neut # (Auto) 6700 Lymph # (Auto) 1700 [place]cher # (Auto) 900 Eos # (Auto) 500 H Baso # (Auto) 0 Sodium 138 Potassium 3.3 L Chloride 103 Carbon Dioxide 32 BUN 22 H Creatinine 0.67 Estimated GFR > 60 BUN/Creatinine Ratio 32.8 H Glucose 113 H Calcium 8.6 PFSH Social History household members: none Smoking Status: Never smoker alcohol intake: former Assessment & Plan Assessment & Plan narrative: 1. Acute UTI secondary to acute urinary retention suspected secondary to BPH -had >3L urine out when coombs place -UA consistent with UTI -follow up urine and blood cultures, all without growth currently. -continue IV antibiotics for now with ceftriaxone -ordered for finasteride and tamsulosin -will trial hand mittens bilaterally in hopes that he can continue coombs and return home with hospice with catheter. If he is able to pull coombs can monitor for obstruction here. 2. Acute encephalopathy, metabolic -likely multifactorial secondary to dementia, infection, renal failure, and electrolyte abnormalities -treatment as above 3. SAI, improving -secondary to obstruction and possible prerenal -creatinine improving after coombs placed -trend closely 4. Hypernatremia -continue IV d5w until sodium normal 5. Dementia with behavioral disturbances -continue seroquel -prn ativan and haldol -restrtaints as needed CODE: DNR/DNI Proxy: Maggie Tafoya, Dispo: return to prior facility with hospice, either with coombs catheter and b/l mitts, or without catheter and continued flomax and proscar. Discussed with case management, nursing to obtain additional history and formulate the above assessment and plan . Quality VTE Deep Vein Thrombosis/Pulmonary Embolism Present on Admission: No
[2023-10-20] MEDS: cefTRIAXone 2,000 MG in SODIUM CHLORIDE 0.9% 100 ML 200 MG IV (14:12)
[2023-10-20 16:00] VITALS: BP 134/64; PULSE 93; RESP 16; TEMP 36.3; O2SAT 98
--- NOTE | 2023-10-20 16:11 | CM.DPC ---
DCP Cont. Reviewed EMR and team rounds for status updates. Pt is much more calm today, still fidgety and requiring soft restraints to prevent him from pulling his coombs out. Spoke with at length about d/c preferences back to [facility]. She would like to initiate a hospice info visit w/plan to return to [facility] on hospice. Sent referral to [facility]. They are trying to determine if pt can be fit in to be admitted at [facility] within the next 1-2 days, but will need DME delivered ahead of time. Pt has a regular twin bed that he had been sleeping in prior to this admit. Plan is to remove the coombs today and trial him on being able to void on his own. Coombs to be removed also because he would continue to tug on it at [facility], and they cannot use soft hand restraints in the facility. is tearful but accepting that pt is medically at his new baseline, the infection having cleared. He has not been awake or alert each time this ALL TERRAIN VEHICLE RACER saw him in the room. Plan: F/u on 10/21 with [facility] re: time for admit, update [facility] and . Danna from [facility] will need to reassess him prior to his return, she is aware, has not yet contacted this [employer] TER[employer] VEHICLE RACER today.
[2023-10-20] MEDS: FINASTERIDE 5 MG TABLET PO (20:47)
[2023-10-21 00:09] VITALS: BP 127/65; PULSE 85; RESP 16; TEMP 37.3
[2023-10-21] MEDS: LORazepam 0.5 MG TABLET PO (01:11)
[2023-10-21 04:45] LABS: Add Manual Diff / Slide Review NO; Basophils Absolute Auto 0 /uL (0-100); Basophils Percent Auto 0.2 % (0-2); Eosinophils Absolute Auto 100 /uL (0-450); Eosinophils Percent Auto 0.8 % (2-4); Hematocrit 38.1 % (41-53); Hemoglobin 12.8 g/dL (13.5-17.5); Lymphocytes Absolute Auto 1500 /uL (1100-4500); Lymphocytes Percent Auto 10.3 % (25-40); Mean Corpuscular HGB Conc 33.7 % (30-36); Mean Corpuscular Hemoglobin 29.2 PG (26-34); Mean Corpuscular Volume 86.6 fL (80-100); Monocytes Absolute Auto 1000 /uL (0-900); Monocytes Percent Auto 6.8 % (3-14); Neutrophils Absolute Auto 11600 /uL (1500-7000); Neutrophils Percent Auto 81.9 % (50-75); Platelet Count 254 X10^3/uL (150-400); Red Cell Distribution Width 14.6 % (11.6-14.8); White Blood Cell Count 14.2 X10^3/uL (4.5-11.0)
[2023-10-21 04:50] LABS: Blood Urea Nitrogen 18 mg/dL (9-20); Calcium 9.1 mg/dL (8.4-10.2); Carbon Dioxide 33 mmol/L (22-32); Chloride 104 mmol/L (98-107); Estimated Glomerular Filt Rate > 60 mL/min (>60); Glucose 107 mg/dL (80-110); HEMOLYSIS < 15 (0-50); Potassium 3.8 mmol/L (3.4-5.1); Sodium 140 mmol/L (137-145)
[2023-10-21 06:25] VITALS: RESP 16
[2023-10-21 08:06] VITALS: BP 132/58; PULSE 77; RESP 20; TEMP 36.9; O2SAT 94
[2023-10-21] MEDS: HEPARIN 5,000 UNIT/ML VIAL 5000 UNIT SUBCUT ×2 (09:31→21:26)
[2023-10-21] MEDS: LORATADINE 10 MG TABLET PO (09:31)
[2023-10-21] MEDS: QUETIAPINE 25 MG TABLET 50 MG PO (09:31)
[2023-10-21] MEDS: TAMSULOSIN 0.4 MG CAPSULE PO (09:32)
--- NOTE | 2023-10-21 11:31 | P.PN_ITS ---
Subjective Subjective Interval history: He is confused. He has been needed to be in restrtaints, physical and chemical, due to risk of injuring self by removing IV, coombs. Overnight did well with hand mitts and coombs has been in place still. Now working on timing of return to [facility] on hospice. Exam Vital Signs (past 8 hours): - 10/21/23 06:25 10/21/23 08:06 Temperature 98.5 F Pulse Rate 77 Respiratory Rate 16 20 Blood Pressure 132/58 L Pulse Oximetry 94 Oxygen Flow Rate 0 Oxygen Delivery Method Room Air Oxygen Flow Rate 0 Narrative Exam Narrative: GEN: no acute distress CV: regular rate and rhythm, no murmurs PULM: clear bilaterally ABD: soft, nontender, nondistended EXT: warm and well perfused with no edema NEURO: confused Objective Labs 10/21/23 04:25 10/21/23 04:25 Labs: Laboratory Results - last 24 hr 10/21/23 04:25 WBC 14.2 H RBC 4.40 L Hgb 12.8 L Hct 38.1 L MCV 86.6 MCH 29.2 MCHC 33.7 RDW 14.6 Plt Count 254 Neut % (Auto) 81.9 H Lymph % (Auto) 10.3 L Wilkin % (Auto) 6.8 Eos % (Auto) 0.8 L Baso % (Auto) 0.2 Neut # (Auto) 75026 H Lymph # (Auto) 1500 Wilkin # (Auto) 1000 H Eos # (Auto) 100 Baso # (Auto) 0 Sodium 140 Potassium 3.8 Chloride 104 Carbon Dioxide 33 H BUN 18 Creatinine 0.75 Estimated GFR > 60 BUN/Creatinine Ratio 24.0 H Glucose 107 Calcium 9.1 PFSH Social History household members: none Smoking Status: Never smoker alcohol intake: former Assessment & Plan Assessment & Plan narrative: 1. Acute UTI secondary to acute urinary retention suspected secondary to BPH -had >3L urine out when coombs place -UA consistent with UTI -follow up urine and blood cultures, all without growth currently. -continue IV antibiotics for now with ceftriaxone, 7 days total -ordered for finasteride and tamsulosin -thus far no issues with hand mittens and removal of coombs. Ideally he will discharge to [facility] on hospice with coombs catheter. 2. Acute encephalopathy, metabolic -likely multifactorial secondary to dementia, infection, renal failure, and electrolyte abnormalities -treatment as above 3. SAI, improving -secondary to obstruction and possible prerenal -creatinine improved after coombs placed -can now stop trending. 4. Hypernatremia -stop IV fluids. Na returned to normal. 5. Dementia with behavioral disturbances -continue seroquel -prn ativan and haldol -restrtaints as needed CODE: DNR/DNI Proxy: Maggie Tafoya, Dispo: return to prior facility with hospice, either with coombs catheter and b/l mitts, or without catheter and continued flomax and proscar. Discussed with case management, nursing to obtain additional history and formulate the above assessment and plan . Quality VTE Deep Vein Thrombosis/Pulmonary Embolism Present on Admission: No
--- NOTE | 2023-10-21 12:19 | CM.DPNOTE ---
Addendum entered by BEHZAD Garner 10/21/23 16:31: ADD: According to Regina with [facility], Patient has been placed on [facility] schedule for Thursday start of care between [id number]. Regina will coordinate with [facility] to get hospital bed and wheelchair delivered by tomorrow. HARI Original Note: DCP Note Placed call to [facility], spoke with Danna who anticipates being able to assess patient at bedside today. Faxed updated clinical to Danna per her request. Danna explains that if patient can get a hospital bed delivered, it is likely they can accept patient back home without active hospice service. Placed call to [facility], spoke w/Regina. As of our conversation this morning, referrals from [place] are on hold as census in [place] is is full. Morgan plans to get back to this [facility] once she knows more about census and schedule availability. Placed another call to regina at [facility], had to leave message requesting delivery of hospital bed tomorrow. CM team following closely for coordination of discharge plan: Back to [facility] w/Hospice services. HARI
[2023-10-21] MEDS: cefTRIAXone 2,000 MG in SODIUM CHLORIDE 0.9% 100 ML 200 MG IV (15:10)
[2023-10-21] MEDS: HALOPERIDOL 5 MG/ML VIAL 2 MG IV (20:02)
[2023-10-21] MEDS: FINASTERIDE 5 MG TABLET PO (21:26)
[2023-10-22] VITALS: BP 104/84; PULSE 87; RESP 18; TEMP 36.7; O2SAT 97
[2023-10-22] MEDS: HALOPERIDOL 5 MG/ML VIAL 2 MG IV (02:45)
[2023-10-22 05:28] LABS: Add Manual Diff / Slide Review NO; Basophils Absolute Auto 100 /uL (0-100); Basophils Percent Auto 0.5 % (0-2); Eosinophils Absolute Auto 100 /uL (0-450); Eosinophils Percent Auto 0.9 % (2-4); Hematocrit 40.8 % (41-53); Hemoglobin 13.5 g/dL (13.5-17.5); Lymphocytes Absolute Auto 1500 /uL (1100-4500); Lymphocytes Percent Auto 11.5 % (25-40); Mean Corpuscular HGB Conc 33.1 % (30-36); Mean Corpuscular Hemoglobin 28.6 PG (26-34); Mean Corpuscular Volume 86.5 fL (80-100); Monocytes Absolute Auto 1100 /uL (0-900); Monocytes Percent Auto 8.4 % (3-14); Neutrophils Absolute Auto 10400 /uL (1500-7000); Neutrophils Percent Auto 78.7 % (50-75); Platelet Count 256 X10^3/uL (150-400); Red Blood Cell Count 4.72 X10^6/uL (4.5-5.9); Red Cell Distribution Width 14.5 % (11.6-14.8); White Blood Cell Count 13.2 X10^3/uL (4.5-11.0)
[2023-10-22 06:38] VITALS: BP 120/56; PULSE 83; TEMP 37.1
--- NOTE | 2023-10-22 07:28 | PM.PN.1 ---
Subjective Subjective Interval history: Patient needs to have mitts off for 12 hours per [place] before he can return there. Will attempt voiding trial today. Coombs removed and bladder scan with 130cc urine. Has not urinated yet. Exam Vital Signs (past 8 hours): - 10/22/23 00:00 10/22/23 06:38 Temperature 98.1 F 98.8 F Pulse Rate 87 83 Respiratory Rate 18 Blood Pressure 104/84 120/56 L Pulse Oximetry 97 Oxygen Flow Rate 0 Oxygen Delivery Method Room Air Oxygen Flow Rate 0 Narrative Exam Narrative: GEN: no acute distress, ill-appearing CV: regular rate and rhythm, no murmurs PULM: clear bilaterally ABD: soft, nontender, nondistended EXT: warm and well perfused with no edema NEURO: confused Objective Labs 10/22/23 05:20 10/21/23 04:25 Labs: Laboratory Results - last 24 hr 10/22/23 05:20 WBC 13.2 H RBC 4.72 Hgb 13.5 Hct 40.8 L MCV 86.5 MCH 28.6 MCHC 33.1 RDW 14.5 Plt Count 256 Neut % (Auto) 78.7 H Lymph % (Auto) 11.5 L [place] % (Auto) 8.4 Eos % (Auto) 0.9 L Baso % (Auto) 0.5 Neut # (Auto) 53735 H Lymph # (Auto) 1500 [place] # (Auto) 1100 H Eos # (Auto) 100 Baso # (Auto) 100 PFSH Social History household members: none Smoking Status: Never smoker alcohol intake: former Assessment & Plan Assessment & Plan narrative: 1. Acute UTI secondary to acute urinary retention suspected secondary to BPH -had >3L urine out when coombs place, had terazosin discontinued 6mo ago due to soft BP -UA consistent with UTI -follow up urine and blood cultures, all without growth currently. -continue IV antibiotics for now with ceftriaxone, 7 days total -ordered for finasteride and tamsulosin -will do voiding trial with coombs removal, q8h bladder scans -can remove mitts tonight if able to urinate 2. Acute encephalopathy, metabolic -likely multifactorial secondary to dementia, infection, renal failure, and electrolyte abnormalities -treatment as above 3. SAI, resolved -secondary to obstruction and possible prerenal -creatinine improved after coombs placed -can now stop trending. 4. Hypernatremia -stop IV fluids. Na returned to normal. 5. Dementia with behavioral disturbances -continue seroquel -prn ativan and haldol -restrtaints as needed CODE: DNR/DNI, Proxy: Maggie Tafoya, Dispo: Return to prior facility with hospice likely on 10/23, either with coombs catheter and b/l mitts, or without catheter and continued flomax and proscar. Discussed with case management, nursing to obtain additional history and formulate the above assessment and plan . Quality VTE Deep Vein Thrombosis/Pulmonary Embolism Present on Admission: No
[2023-10-22] MEDS: cefTRIAXone 2,000 MG in SODIUM CHLORIDE 0.9% 100 ML 200 MG IV (08:05)
[2023-10-22 08:27] VITALS: BP 142/72; PULSE 98; RESP 19; TEMP 36.4; O2SAT 96
[2023-10-22] MEDS: HEPARIN 5,000 UNIT/ML VIAL 5000 UNIT SUBCUT ×2 (09:32→20:10)
[2023-10-22] MEDS: QUETIAPINE 25 MG TABLET 50 MG PO (09:32)
[2023-10-22] MEDS: TAMSULOSIN 0.4 MG CAPSULE PO (09:32)
[2023-10-22] MEDS: LORATADINE 10 MG TABLET PO (09:32)
--- NOTE | 2023-10-22 10:50 | CM.DPNOTE ---
Addendum entered by BEHZAD Garner 10/22/23 14:03: ADD: Have attempted contact w/spouse x2 today, left messages. Will chk bedside as well. Addendum entered by BEHZAD Garner 10/22/23 13:24: ADD: BLS arranged for 0900 picker tender 10.23.23. Placed completed and signed BLS form w/DNR order and face sheet on patient's red chart for BLS crew. Original Note: DCJustin Dupree Spoke with Danna at [facility] this morning; Danna explains patient can return home to [facility] once out of restraints for 12 hours. Mittens are considered restraints for assisted living facilities. Updated that [facility] has a start of care slot held for patient tomorrow 10.23.23 at [facility] between [phone]. This TECHNICIAN TEST SYSTEMS suggested BLS be arranged for 0900 picker tender, Danna agreeable to this. Danna remains optimistic that patient will be able to tolerate at least 12 hours being restraint free so that he can return back to [facility] with hospice services to follow. Placed call to Regina at [facility] P [phone], had to LM confirming this CM team aiming for patient's discharge tomorrow via BLS at 0900. Placed call to spouse Lupe, had to LM requesting CB to review discharge plan. HARI
--- NOTE | 2023-10-22 17:53 | PC.NURSE ---
unable to void. current bladder scan is 230-370cc.
[2023-10-22] MEDS: QUETIAPINE 25 MG TABLET PO (20:10)
[2023-10-22] MEDS: FINASTERIDE 5 MG TABLET PO (20:10)
[2023-10-22 21:25] VITALS: BP 113/72; PULSE 73; RESP 12; TEMP 36.5; O2SAT 96
--- NOTE | 2023-10-23 02:02 | PC.NURSE ---
Patient has no urinary output since coombs was removed. Bladder scan 530mL. Coombs replaced per order.
[2023-10-23] MEDS: cefTRIAXone 2,000 MG in SODIUM CHLORIDE 0.9% 100 ML 200 MG IV (06:43)
[2023-10-23 07:46] VITALS: BP 134/78; PULSE 78; RESP 19; TEMP 36.3; O2SAT 94
[2023-10-23] MEDS: HEPARIN 5,000 UNIT/ML VIAL 5000 UNIT SUBCUT ×2 (08:28→20:25)
[2023-10-23] MEDS: LORATADINE 10 MG TABLET PO (08:28)
[2023-10-23] MEDS: QUETIAPINE 25 MG TABLET PO (08:28)
[2023-10-23] MEDS: TAMSULOSIN 0.4 MG CAPSULE PO (08:28)
--- NOTE | 2023-10-23 13:32 | PM.PN.1 ---
Subjective Subjective Interval history: Patient failed voiding trial yesterday with 400+ urine in bladder and unable to urinate so coombs replaced. 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 Exam Vital Signs (past 8 hours): - 10/23/23 07:46 Temperature 97.3 F L Pulse Rate 78 Respiratory Rate 19 Blood Pressure 134/78 Pulse Oximetry 94 Oxygen Flow Rate 0 Oxygen Delivery Method Room Air Oxygen Flow Rate 0 Narrative Exam Narrative: GEN: no acute distress, ill-appearing, hand mitts in place CV: regular rate and rhythm, no murmurs PULM: clear bilaterally ABD: soft, nontender, nondistended EXT: warm and well perfused with no edema NEURO: confused Objective Labs 10/22/23 05:20 10/21/23 04:25 PFS Social History household members: none Smoking Status: Never smoker alcohol intake: former Assessment & Plan Assessment & Plan narrative: 1. Acute UTI secondary to acute urinary retention suspected secondary to BPH -had >3L urine out when coombs place, had terazosin discontinued 6mo ago due to soft BP -UA consistent with UTI -follow up urine and blood cultures, all without growth currently. -continue IV antibiotics for now with ceftriaxone, 7 days total -ordered for finasteride and tamsulosin -failed voiding trial on 10/22, coombs back in -spoke with Dr. Velarde director medical writing at [facility] who is working on getting him approved for [facility] with mitts on hospice -last resort option would be a suprapubic cath 2. Acute encephalopathy, metabolic -likely multifactorial secondary to dementia, infection, renal failure, and electrolyte abnormalities -increase seroquel to 50mg BID -ativan IV PRN for agitation 3. SAI, resolved -secondary to obstruction and possible prerenal -creatinine improved after coombs placed -can now stop trending. 4. Hypernatremia -stop IV fluids. Na returned to normal. 5. Dementia with behavioral disturbances -continue seroquel -prn ativan and haldol -restrtaints as needed Lines: Left midline in place, can be removed on discharge CODE: DNR/DNI, Proxy: Maggie Tafoya, Dispo: Pending plan for coombs with mitts vs no coombs or mitts and straight caths. Discussed with case management, nursing to obtain additional history and formulate the above assessment and plan . Quality VTE Deep Vein Thrombosis/Pulmonary Embolism Present on Admission: No
--- NOTE | 2023-10-23 17:29 | CM.DPC ---
DCP Continued RETAIL TEAM MEMBER reviewed EMR. Dhara FUNEZW kindly assisted in canceling transport to [facility]. Patient had mitts remain on overnight, [place] unable to accept him back. Per provider, dc midline. Per provider, coombs back in. Patient has been pulling it out/attempting to pull it out. RETAIL TEAM MEMBER coordinated frequently with Kathie at [facility] throughout the day. Cancelled today's opening, tentative new start of services arranged for Thursday at 10am. Kathie reports they are unable to have a nurse daily with Pt to support his catheter needs. Confirms a hospital bed, table, and transfer w/c were delivered. RETAIL TEAM MEMBER entered room and introduced self and role. Pt accompanied by Reyna (p [phone]) at bedside. RETAIL TEAM MEMBER reviewed some barriers to dc at [facility] time. reports understanding. RETAIL TEAM MEMBER coordinated with Danna from [facility]. Attempting to come up with plan for managing his catheter. Provider and NAJMA provider Sydney Whitmore attempting to coordinate directly for a medical plan that meets patient's needs as well as [facility] staffing availability. RETAIL TEAM MEMBER spoke with Carolyne at . Carolyne agreed to review. RETAIL TEAM MEMBER lvm with to update her on dcp findings. Plan: unclear at this time. Options include 1) [place] with [facility] and private pay nurse support to manage catheter. [facility] scheduled to open at 10am Friday 10/26. Will need to arrange BLS transport. 2) for end of life/catheter intermediate card tender care. CM team will follow closely. BEHZAD Park
--- NOTE | 2023-10-23 17:37 | PC.NURSE ---
Patient up in chair with mits on, he is moving around but staying in his chair. here earlier and patient has been appropriate this shift. We have changed him twice and he was compliant throughout the change.
[2023-10-23] MEDS: FINASTERIDE 5 MG TABLET PO (20:25)
[2023-10-23] MEDS: DIVALPROEX 125 MG CAP PO (20:25)
[2023-10-23] MEDS: QUETIAPINE 25 MG TABLET 50 MG PO (20:27)
[2023-10-23 21:09] VITALS: BP 93/50; PULSE 87; RESP 20; TEMP 36.4
--- NOTE | 2023-10-24 06:37 | PC.NURSE ---
Patient unable to answer any questions, restless last evening, trying to pull at tubes, leonardo mitts remain on. Patient resistant to cares at [facility] and initially refused meds, then patient calmed down, took meds in vanilla pudding, and slept most of night. Urine output decreased and blood tinged last evening, tea colored this am.
--- NOTE | 2023-10-24 07:10 | P.PN_ITS ---
Subjective Subjective Date Patient Seen: 10/24/23 Interval history: 83 year old male with dementia and benign prostatic hypertrophy who was admitted October 16 with acute kidney injury hypernatremia and urinary tract infection. over the next several days, he became increasingly agitated and required both physical and chemical restraints.? [facility].? There was a plan in place for home to return to [facility]/hospice services.? Attempts were made at a voiding trial on 10/22/23 but were unsuccessful.? Plan is now for D/C to [facility]/hospice admission. Patient was calm, chewing his Estonian toast. Mitts remained in place on both hands. No verbal response to questions. Exam Vital Signs (past 8 hours): Oxygen Delivery Method Room Air Oxygen Flow Rate 0 Narrative Exam Narrative: GEN: Elderly male, lying in bed, chewing his food, non communicative, no acute distress HEENT:NC, Face symmetric CHEST: Respiratory excursions symmetric, scattered expiratory wheezes bilaterally CV: Irregular,, no M/R/G ABD: Soft, NT/ND, BT present in all 4 quadrants, no organomegaly or masses EXTR: warm, well perfused, no C/C/E SKIN: warm and dry, no rash NEURO: Alert, nonfocal Objective Labs 10/22/23 05:20 10/21/23 04:25 [facility] Social History household members: none Smoking Status: Never smoker alcohol intake: former Assessment & Plan Assessment & Plan narrative: 1. Acute urinary tract infection secondary to urinary retention Patient completed a course of ceftriaxone. Urine culture was negative. Crawford catheter remains in place. 2. Urinary retention, likely secondary to BPH He remains on finasteride and tamsulosin. He failed his voiding trial on October 22. He continues to require soft mitts to prevent him pulling out his Crawford catheter. 3. Acute metabolic encephalopathy Likely multifactorial from infection, dementia, and kidney injury. Depakote Sprinkles added last night. Hopefully this will help with mood stabilization such that the mitts can be discontinued. 4. Dementia Continue Seroquel as well as as needed lorazepam and Zyprexa. 5. Oliguria Over the course of the day, his urine output weaned and he had a total shift amount of 200 cc. IV fluids were restarted due to his poor oral intake. Code status DNR DNI Prophylaxis On heparin. Disposition [facility] can admit him on October 26 between 10 and 11:00 a.m. at his facility. It is hopeful he can discharge tomorrow if the mitts can be removed. Otherwise, he could discharge on the prior to his hospice admission. Quality VTE Deep Vein Thrombosis/Pulmonary Embolism Present on Admission: No
[2023-10-24] MEDS: TAMSULOSIN 0.4 MG CAPSULE PO (11:02)
[2023-10-24] MEDS: LORATADINE 10 MG TABLET PO (11:02)
[2023-10-24] MEDS: HEPARIN 5,000 UNIT/ML VIAL 5000 UNIT SUBCUT ×2 (11:02→20:15)
[2023-10-24] MEDS: DIVALPROEX 125 MG CAP PO ×3 (11:02→20:15)
[2023-10-24] MEDS: QUETIAPINE 25 MG TABLET 50 MG PO ×2 (11:02→20:15)
--- NOTE | 2023-10-24 13:20 | CM.DPC ---
DCP Cont: Discussed patient during team rounds. Goal is to get patient back to [facility]. Asked Dr. Garcia if she can possibly discuss further with Dr. Concepcion, as far as accepting patient back, which she may be able to do today. Let her know that [facility] patient back at the facility on Thursday. May need to bring up to facility if they can get a caregiver to be with him on a one on one basis. Patient currently still has on the mits, staff concerned that he will pull out his catheter'. Hospitalist did initiate some Depakote sprinkles, he is currently sleeping, and staff indicate that he has been compliant with care. P: DCP to follow closely, plan is for patient to return to [facility], will see how he does over the weekend, only barrier is the mits. Will see if there is a possibility of removing them during the weekend, if patient continues to be more calm. Norma Reyna RN/Origination Specialist
--- NOTE | 2023-10-24 14:16 | PC.NURSE ---
Day shift: Pt slept unit approx 1000 this AM. Meds given with his breakfast at that time. Took meds crushed in vanilla pudding. Pt did not eat much of breakfast. Unable to answer or ask any questions this AM. Brief changed by PCT's today at approx 1400 and he tolerated well. He did become agitated at the end of that process but was combative. Bed alarm is on, call light in reach and door to room open for safety. He has not attempted to get OOB. Pt's Spouse did call this AM and was given an updte. She will not be back in [place] until Thursday she said. Pt did have a smear of stool with that brief change. Crawford remains patent with tea colored output. Mitts/gloves in place for safety. Pt has been attempting to remove Crawford. aware.
[2023-10-24 17:24] VITALS: BP 131/50; PULSE 77; RESP 16; TEMP 36.3; O2SAT 93
[2023-10-24] MEDS: FINASTERIDE 5 MG TABLET PO (20:14)
[2023-10-24] MEDS: SODIUM CHLORIDE 0.9% 1,000 ML 100 ML IV (20:14)
[2023-10-24] MEDS: SODIUM CHLORIDE 0.9% FLUSH 10 ML IV (20:28)
[2023-10-24 20:30] VITALS: BP 124/56; PULSE 91; RESP 18; TEMP 36.1; O2SAT 95
[2023-10-25 04:35] VITALS: BP 122/47; PULSE 68; RESP 20; TEMP 36.2
[2023-10-25] MEDS: TAMSULOSIN 0.4 MG CAPSULE PO (08:30)
[2023-10-25] MEDS: QUETIAPINE 25 MG TABLET 50 MG PO ×2 (08:31→21:00)
[2023-10-25] MEDS: DIVALPROEX 125 MG CAP PO ×3 (08:31→21:00)
[2023-10-25] MEDS: LORATADINE 10 MG TABLET PO (08:31)
[2023-10-25] MEDS: HEPARIN 5,000 UNIT/ML VIAL 5000 UNIT SUBCUT ×2 (08:31→21:00)
[2023-10-25] MEDS: SODIUM CHLORIDE 0.9% 1,000 ML 100 ML IV ×2 (13:37→22:57)
[2023-10-25 14:48] VITALS: BP 136/61; PULSE 82; RESP 16; TEMP 36.2; O2SAT 98
--- NOTE | 2023-10-25 15:39 | CM.DPC ---
DCP Continued ACQUISITION PROFESSIONAL reviewed EMR. Per RN, mitt[place] of [address]10/25/23. Pt doing well without mitts. ACQUISITION PROFESSIONAL spoke with Marleny at [facility]. Agreeable to start services Thursday at [phone] at [facility]. ACQUISITION PROFESSIONAL spoke with dispatch at Ambulance. Set up transport time for 0900 to [facility]. Per previous CM note, DNR order and face sheet with ambulance form in chart from previous transport attempt. ACQUISITION PROFESSIONAL lvm with Danna at [facility] to notify mitts have been removed and to plan for pt to return home at 0900 tomorrow. ACQUISITION PROFESSIONAL spoke with Javier at . Knows plan is to return to [facility] Thursday morning but will keep referral in case something changes. As of 1599, the mitts remain off and from RN, pt is doing well. ACQUISITION PROFESSIONAL spoke with spouse Reyna (p [phone]). Updated her on pt and discharge plan. Agreeable with plan. Recognizes there may be a BLS cost and approves transport. Reyna reports she will be here as early as possible to assist with dc but is coming from [place]. Reyna reports she will hire additional caregivers from list of home caregiver options as sitter if needed for pt. Plan: pt to d/c tomorrow morning to [facility]. [facility] to transport at 0900. [facility] to open at 1000, needs signed d/c summary. CM team will continue to follow closely. BEHZAD Park
--- NOTE | 2023-10-25 16:18 | PM.PN.1 ---
Subjective Subjective Interval history: Patient had mitts removed at 8am and doing well so far with them off. Plan is for dc to [facility] tomorrow. Exam Vital Signs (past 8 hours): - 10/25/23 14:48 Temperature 97.1 F L Pulse Rate 82 Respiratory Rate 16 Blood Pressure 136/61 Pulse Oximetry 98 Oxygen Delivery Method Room Air Oxygen Flow Rate 0 Narrative Exam Narrative: GEN: Elderly male, lying in bed, non communicative, no acute distress HEENT:NC, Face symmetric CHEST: Respiratory excursions symmetric, scattered expiratory wheezes bilaterally CV: Irregular,, no M/R/G ABD: Soft, NT/ND, BT present in all 4 quadrants, no organomegaly or masses EXTR: warm, well perfused, no C/C/E SKIN: warm and dry, no rash NEURO: Alert, nonfocal Objective Labs 10/22/23 05:20 10/21/23 04:25 [facility] Social History household members: none Smoking Status: Never smoker alcohol intake: former Assessment & Plan Assessment & Plan narrative: 1. Acute urinary tract infection secondary to urinary retention Patient completed a course of ceftriaxone. Urine culture was negative. Crawford catheter remains in place. 2. Urinary retention, likely secondary to BPH He remains on finasteride and tamsulosin. He failed his voiding trial on October 22. Soft mitts now off for 8 hours and once he completes 12 hours he can dc to [facility]. 3. Acute metabolic encephalopathy Likely multifactorial from infection, dementia, and kidney injury. Depakote Sprinkles added last night. Hopefully this will help with mood stabilization such that the mitts can be discontinued. 4. Dementia Continue Seroquel as well as as needed lorazepam and Zyprexa. 5. Oliguria Over the course of the day, his urine output weaned and he had a total shift amount of 200 cc. IV fluids were restarted due to his poor oral intake. Code status DNR DNI Prophylaxis On heparin. Disposition Back to [facility] on hospice on 10/26. Quality VTE Deep Vein Thrombosis/Pulmonary Embolism Present on Admission: No
--- NOTE | 2023-10-25 19:14 | PC.NURSE ---
Day shift: Removed hand mitts at 0800 this AM. Patient did not try to pull IV this shift. He needed redirection to not pull Crawford 2x this evening at 1800 - he was redirectable. MD Morales ok'ed no IV if IV access is lost. NS running at 100 right now. Will continue to monitor.
[2023-10-25 19:50] VITALS: BP 139/73; PULSE 68; RESP 20; TEMP 35.9; O2SAT 100
[2023-10-25] MEDS: FINASTERIDE 5 MG TABLET PO (21:00)
--- NOTE | 2023-10-26 07:37 | PM.DS.1 ---
History of Present Illness History of Present Illness Date Patient Seen: 10/16/23 Time Patient Seen: 08:00 Chief complaint: thinks UTI and dehydrated/ lethargic Narrative: Mr. Tafoya is an 83M with PMH dementia, BPH who presents to the hospital for confusion and decreased appetite. No history of obtained from the patient due to confusion. His notes he resides at a nursing facility. He is usually able to ambulate independently. More recently he has been unsteady with ambulation and not eating/drinking significantly. In the ED workup was done, vitals notable for afebrile, heart rate 100s, sats 97% room air. Labs reviewed and notable for WBC 17.8, hgb 13.7, ptls 219. Na 147, BUN 131, creatinine 3.77. UA noable for blood, WBCs, bacteria, nitrates. Coombs was placed and per ED physician drained quickly 3L urine. Kidney ultrasound showed possible mild right hydronphresosis and no stone noted. He was ordered for fluids and antibiotics and admitted for further treatment. Discharge Providers Provider Date of admission: 10/16/23 11:01 Discharge Date: 10/26/23 Primary care physician: NORMA Blue Discharge provider: Km Morales DO Summary Hospital Course Discharge Diagnosis: 1. Acute urinary tract infection secondary to urinary retention Patient completed a course of ceftriaxone. Urine culture was negative. Coombs catheter remains in place. 2. Urinary retention, likely secondary to BPH He remains on finasteride and tamsulosin. He failed his voiding trial on October 22. Soft mitts able to be off for an entire day. 3. Acute metabolic encephalopathy Likely multifactorial from infection, dementia, and kidney injury. Depakote Sprinkles added last night. Able to get off the mitts. Hospice can continue depakote if warranted but for now will only continue seroquel 50mg BID. 4. Dementia Continue Seroquel. 5. Oliguria Over the course of the day, his urine output weaned and he had a total shift amount of 200 cc. IV fluids were restarted due to his poor oral intake. Hospital Course: Admitted for failure to thrive, SAI, UTI and urinary retention. Coombs placed with 3L UO. SAI and UTI resolved. interested in pursuing hospice. Started flomax in attempt to get off coombs as patient would pull at it. Had to place mitts to prevent from pulling coombs out. Increased seroquel to help with mentation. Voiding trial failed so coombs had to be replaced. With increased seroquel patient was able to tolerate no mitts and not pulling coombs. Careful attempts were made to hide the coombs using blankets tucked into his sides and he did not attempt to pull the coombs. He was discharged back to [facility] on hospice. Exam Vital Signs (past 8 hours): Oxygen Delivery Method Room Air Oxygen Flow Rate 0 Narrative Exam Narrative: GEN: Elderly male, lying in bed, non communicative, no acute distress HEENT:NC, Face symmetric CHEST: Respiratory excursions symmetric, scattered expiratory wheezes bilaterally CV: Irregular,, no M/R/G ABD: Soft, NT/ND, BT present in all 4 quadrants, no organomegaly or masses EXTR: warm, well perfused, no C/C/E SKIN: warm and dry, no rash NEURO: Alert, nonfocal Objective Labs 10/22/23 05:20 10/21/23 04:25 [facility] Social History household members: none Smoking Status: Never smoker alcohol intake: former Discharge Plan Discharge Plan Patient Disposition: Hospice - Home Discharge orders & Medications Prescriptions: New tamsulosin [Flomax] 0.4 mg Capsule 0.4 mg PO DAILY Qty: 30 0RF Continued nitrofurantoin monohyd/m-cryst 100 mg capsule 1 cap PO BID pantoprazole 20 mg tablet,delayed release (DR/EC) 20 mg PO DAILY finasteride 5 mg tablet 5 mg PO BEDTIME clotrimazole [Lotrimin AF (clotrimazole)] 1 % Cream 1 applic TOPICAL WEEKLY Rx Instructions: EVERY TUE AND SAT melatonin 5 mg Tablet 5 mg PO BEDTIME PRN (Reason: Sleep) multivitamin Tablet 1 tab PO Q OTHER DAY Tylenol 500 MG 1 tab PO Q4HR PRN (Reason: Pain (Scale Score 1-3)) cholecalciferol (vitamin D3) [Vitamin D3] 50 mcg (2,000 unit) Tablet 2,000 unit PO DAILY cetirizine 10 mg Tablet 10 mg PO DAILY coenzyme Q10 [Co Q-10] 100 mg Capsule 100 mg PO DAILY Glucosamine Chondroitin 1 tab PO DAILY Changed quetiapine 25 mg tablet 50 mg PO BID Qty: 30 0RF Follow up/Referrals: Sydney Ruiz ARNP [Primary Care Provider] - 1 Week Visit Report/Discharge Packet Stand Alone Forms: Patient Portal/API, Stroke Signs & Symptoms Discharge Data Primary Care Provider: Sydney Ruiz Quality VTE Deep Vein Thrombosis/Pulmonary Embolism Present on Admission: No
[2023-10-26 08:00] VITALS: BP 160/73; PULSE 80; RESP 18; TEMP 36.3; O2SAT 93
[2023-10-26] MEDS: TAMSULOSIN 0.4 MG CAPSULE PO (08:12)
[2023-10-26] MEDS: DIVALPROEX 125 MG CAP PO (08:12)
[2023-10-26] MEDS: QUETIAPINE 25 MG TABLET 50 MG PO (08:13)
[2023-10-26] MEDS: LORATADINE 10 MG TABLET PO (08:14)
--- NOTE | 2023-10-26 08:22 | CM.DPC ---
DCP Discharge Hospice Per MD, pt remains medically stable to discharge to [facility] with Hospice and has been restraint free for over 24 hours. LJ called RN phone at [facility] and updated on discharge and transport at 0900 via [facility] BLS transport non-emergent and then [facility] to open around 1000. [facility] staff aware and ready to accept him back. SW faxed d/c summary, signed med list, and scripts. LJ called [facility] and confirmed they are set to pick and shovel man pt at 0900. BLS form on the chart. LJ called [facility] and updated on d/c today and they confirm they are set to open about 1000 at [facility] today and SW faxed d/c summary to review. LJ updated RN, SALESPERSON MEATS, and nursing unit clerk. Plan: Patient to d/c back to [facility] today via [facility] at 0900 and [facility] to open at 1000. BEHZAD Chi
--- NOTE | 2023-10-26 09:08 | PC.NURSE ---
Patient just left via [facility] and ambulance back to [facility]. He tolerated this well.
== END 2023-10-26 09:12 | disposition hospice, home (50) | DRG 689 ==
LOC: ED 10:58 → AC 11:02
PROVIDERS: Internal Medicine; Admitting Provider Internal Medicine; Emergency Provider Emergency Medicine; PCP Nurse Practitioner Family; Referring Provider Emergency Medicine; Visit Provider Internal Medicine
DX: N39.0 Urinary tract infection, site not specified (principal); G93.41 Metabolic encephalopathy; N17.9 Acute kidney failure, unspecified; E87.0 Hyperosmolality and hypernatremia; F03.911 Unspecified dementia, unspecified severity, with agitation; E86.0 Dehydration; N40.1 Benign prostatic hyperplasia with lower urinary tract symptoms; R33.8 Other retention of urine; Z66 Do not resuscitate
CPT/HCPCS: 36415; 51798; 76770; 80048; 80053; 81001; 82550; 82570; 83605; 83690; 84145; 84300; 85025; 85027; 86850; 86900; 86901; 87040; 87086; 96361; 96365; 99285; J0696; J1630; J1642; J1644; J2060